=== PATIENT | male | born 1970 | race Caucasian/White ===

== ENCOUNTER 2019-10-01 11:57 | Emergency (ER) | payer OTHER, SELFPAY ==
[2019-10-01 12:11] VITALS: BP 151/112; PULSE 100; RESP 20; TEMP 37.5; O2SAT 98
--- NOTE | 2019-10-01 12:18 | ED.GENADULT ---
HPI - General Adult General Chief complaint: Upper Respiratory Infection Stated complaint: ear pn History of Present Illness HPI narrative: This is a 49-year-old male comes in complaining of left ear pain states that it started approximately a week ago patient states that he is pretty sure he has an ear infection in his ear has been draining and increasingly getting worse Related Data Allergies Allergy/AdvReac Type Severity Reaction Status Date / Time No Known Allergies Allergy Verified 10/01/19 12:14 Review of Systems Review of Systems: Narrative: CONSTITUTIONAL: Denies fever, chills, or sweats. EYES: Denies visual changes, redness, or discharge. ENT: Denies rhinorrhea, congestion, sore throat, or positive otalgia. CARDIOVASCULAR:Denies chest pain, palpitations, or edema. RESPIRATORY: Denies cough or dyspnea. GASTROINTESTINAL: Denies abdominal pain, nausea, vomiting, or diarrhea. GENITOURINARY: Denies dysuria or hematuria. SKIN:[Denies rash or itching. MUSCULOSKELETAL:Denies back pain, joint pain, or myalgia. NEUROLOGIC: Denies headache, numbness, or weakness. PSYCHIATRIC:Denies anxiety or depression [facility] Family History Family History (Updated 01/28/16 @ 23:19 by DOCTOR UNKNOWN) Father Family history of diabetes mellitus in first degree relative Family history of coronary artery disease Social History Social History Smoking status: Never smoker Alcohol intake: current Gender identity (if verbalized by the patient): Male Comments At time as signature, I have reviewed and agree with nursing past medical, social, surgical and family history. Please see nursing chart for further information. There is no relevant family history pertinent to the presenting complaint. Exam Narrative: Exam Narrative: GENERAL:Well-appearing, well-nourished, and in no acute distress. HEAD:Normocephalic, atraumatic. EYES: PERRLA and EOMI. ENT: Nares clear, no rhinorrhea or epistaxis. Mucous membranes moist. Brownish drainage from left ear TM auditory canal is edematous and swollen inability to see TM due to swelling painful to touch on earlobe NECK: Supple. CHEST: Clear to auscultation. No respiratory distress. HEART: Regular rate and rhythm. No murmur heard. Normal peripheral pulses. ABDOMEN: Soft, nontender, nondistended, normal active bowel sounds. EXTREMITIES: Normal range of motion. No edema. SKIN: Warm, dry, no rash. NEURO: No focal deficits. Alert and oriented x3. Your blood pressure was elevated in the clinic today, I feel that this is due to your acute illness rather than essential hypertension. please follow-up with your regular doctor for further evaluation and monitor for evaluation of hypertension Please [facility] schedule a followup visit with your personal physician with in the next 1-4 weeks for further evaluation and treatment. Also, ask your personal physician to assist you regarding blood pressure. Even blood pressure exceeding 120/80 may indicate pre-hypertension. If your symptoms persist, change or worsen significantly before you can contact your personal physician then please, without delay, go to the emergency department for further evaluation. Course Vital Signs Vital signs: Vital Signs Temperature 99.5 F 10/01/19 12:11 Pulse Rate 100 10/01/19 12:11 Respiratory Rate 20 10/01/19 12:11 Blood Pressure 151/112 H 10/01/19 12:11 Pulse Oximetry 98 10/01/19 12:11 Temperature 99.5 F 10/01/19 12:11 Pulse Rate 100 10/01/19 12:11 Respiratory Rate 20 10/01/19 12:11 Blood Pressure 151/112 H 10/01/19 12:11 Pulse Oximetry 98 10/01/19 12:11 Medical Decision Making Differential Diagnosis Differential Diagnosis: Pneumonia, Allergic Rhinitis, Asthma/COPD exacerbation, Upper respiratory cough syndrome, Pharyngitis, Sinusitis, Bronchitis, Influenza, otitis externa high blood pressure Vital Signs Vital Signs: Vital Signs Temperature 99.5 F 10/01/19 12:11 Pulse Rate 100 04/0
== END 2019-10-01 12:45 | disposition home or self-care (01) ==
PROVIDERS: Emergency Provider Nurse Practitioner Family
DX: H60.502 Unspecified acute noninfective otitis externa, left ear (principal); I10 Essential (primary) hypertension
CPT/HCPCS: 99203; G0463